=== PATIENT | male | born 1985 | race Two or more races ===

== ENCOUNTER 2022-05-21 10:53 | Emergency (ER) | payer OTHER ==
[~2022-05-21] VITALS: Ht 180.3 cm; Wt 85.0 kg
[2022-05-21 11:17] LABS: Basophils # (auto) 0.1 10 ^3/uL (0-0.2); Basophils % (auto) 0.6 % (0.0-2.0); Eosinophils # (auto) 0 10 ^3/uL (0-0.8); Eosinophils % (auto) 0.1 % (0.0-7.0); Hematocrit 50.6 % (41.0-53.0); Hemoglobin 16.5 g/dL (13.5-17.5); Lymphocytes # (auto) 2.2 10 ^3/uL (0.4-5.4); Lymphocytes % (auto) 13.6 % (10.0-50.0); Mean Corpuscular Hemoglobin 27.7 pg (28.0-32.0); Mean Corpuscular Hgb Conc. 32.6 g/dL (32.0-36.0); Mean Corpuscular Volume 84.9 fL (80.0-100.0); Monocytes % (auto) 6.3 % (0.0-12.0); Neutrophils # (auto) 12.6 10 ^3/uL (1.6-8.6); Neutrophils % (auto) 79.4 % (37.0-80.0); Red Blood Cells 5.95 10^6/uL (4.5-5.90); Red Cell Distribution Width 13.7 % (11.8-14.3); White Blood Cell 15.8 10^3/uL (4.4-10.8)
[2022-05-21 12:15] LABS: Alanine Aminotransferase 53 U/L (16-61); Albumin 4.5 g/dL (3.4-5.0); Alkaline Phosphatase 82 U/L (45-117); Anion Gap 8 (5-15); Aspartate Aminotransferase 111 U/L (15-37); Bilirubin, Total 0.3 mg/dL (0.2-1.0); Blood Urea Nitrogen 12 mg/dL (7-18); Calcium 8.8 mg/dL (8.5-10.1); Carbon Dioxide 22 mmol/L (21-32); Chloride 108 mmol/L (98-107); GFR African American 110 mL/min; GFR Non-African American 91 mL/min; Glucose 107 mg/dL (74-106); Potassium 4.6 mmol/L (3.5-5.1); Sodium 138 mmol/L (136-145); Total Protein 7.7 g/dL (6.4-8.2)
[2022-05-21] MEDS ORDERED: IOHEXOL 300 MG/ML 100ML BOTTLE IJ ONE (12:52)
[2022-05-21] MEDS ORDERED: cefTRIAXone SOD 1,000 MG VL IM ONE (13:45)
[2022-05-21] MEDS ORDERED: HYDROcodone-ACET 10/325MG TAB PO ONE (14:45)
[2022-05-21] MEDS ORDERED: CEPH-322 PO (15:57)
[2022-05-21 19:41] VITALS: BP 108/72
== END 2022-05-21 19:50 | disposition home or self-care (01) ==
LOC: ER 10:53
DX: R07.89 Other chest pain (principal); D72.829 Elevated white blood cell count, unspecified; F12.10 Cannabis abuse, uncomplicated
CPT/HCPCS: 36415; 71260; 74177; 80053; 84484; 85025; 93005; 96372; 99285; J0696; Q9967